=== PATIENT | female | born 1990 | race Two or more races ===

== ENCOUNTER 2018-04-12 02:51 | Emergency (ER) | payer MEDICAID ==
[~2018-04-12] VITALS: Ht 154.9 cm; Wt 101.0 kg
[2018-04-12 03:52] LABS: BASOPHILS % 1.1 % (0.0-2.0); HEMATOCRIT. 42.3 % (36.0-48.0); HEMOGLOBIN. 14.2 g/dL (12.0-16.0); LYMPHOCYTES % 23.5 % (20.0-50.0); MEAN CORPUSCULAR HEMOGLOBIN 31.6 pg (28.0-32.0); MEAN PLATELET VOLUME 10.2 fl (7.4-10.4); MONOCYTES % 6.2 % (2.0-8.0); NEUTROPHILS % 66.2 % (40.0-76.0); PLATELET 213 x1000/uL (130-400); RED CELL DISTRIBUTION WIDTH 13.3 % (11.6-14.6)
[2018-04-12 03:58] LABS: CHLORIDE 108 mEq/L (98-107)
[2018-04-12 04:00] LABS: PARTIAL THROMBOPLASTIN TIME 26.9 sec (23.4-31.0); PROTHROMBIN TIME 10.6 sec (9.4-11.6)
[2018-04-12 04:09] LABS: B-HCG QUANTITATIVE 2 mIU/mL (<3)
[2018-04-12 05:10] VITALS: BP 138/82
[2018-04-12] MEDS ORDERED: IOHEXOL-350 100 ML BOTTLE ONE (05:48)
== END 2018-04-12 06:15 | disposition home or self-care (01) ==
LOC: ER 02:51
DX: R06.02 Shortness of breath (principal); F12.10 Cannabis abuse, uncomplicated; Z98.890 Other specified postprocedural states
CPT/HCPCS: 36415; 71275; 80053; 81025; 84702; 85025; 85610; 85730; 86850; 86900; 86901; 93005; 99285; Q9967

== ENCOUNTER 2018-04-19 00:13 | Emergency (ER) | payer MEDICAID ==
[~2018-04-19] VITALS: Ht 154.9 cm; Wt 98.0 kg
[2018-04-19 02:04] LABS: BASOPHILS % 0.7 % (0.0-2.0); EOSINOPHILS % 2.7 % (0.0-5.0); HEMATOCRIT. 42.8 % (36.0-48.0); HEMOGLOBIN. 14.6 g/dL (12.0-16.0); LYMPHOCYTES % 26.9 % (20.0-50.0); MEAN CORPUSCULAR HEMOGLOBIN 31.8 pg (28.0-32.0); MEAN CORPUSCULAR VOLUME 93.4 fL (81.0-99.0); MEAN PLATELET VOLUME 9.8 fl (7.4-10.4); MONOCYTES % 5.8 % (2.0-8.0); NEUTROPHILS % 63.9 % (40.0-76.0); PLATELET 209 x1000/uL (130-400); RED BLOOD CELL COUNT 4.58 mill/uL (4.2-5.4); RED CELL DISTRIBUTION WIDTH 12.7 % (11.6-14.6)
[2018-04-19 02:08] LABS: CHLORIDE 105 mEq/L (98-107)
[2018-04-19 02:10] LABS: PROTHROMBIN TIME 10.7 sec (9.4-11.6)
[2018-04-19 02:41] VITALS: BP 111/70
== END 2018-04-19 02:44 | disposition home or self-care (01) ==
LOC: ER 00:44
DX: R07.89 Other chest pain (principal); R06.02 Shortness of breath; M79.602 Pain in left arm; Z98.890 Other specified postprocedural states
CPT/HCPCS: 36415; 71045; 80053; 81025; 83880; 84484; 85025; 85610; 93005; 99285; Z7610

== ENCOUNTER 2025-02-25 09:06 | Emergency (ER) | payer MEDICAID ==
[~2025-02-25] VITALS: Ht 154.9 cm; Wt 104.0 kg
[2025-02-25 09:11] VITALS: O2SAT 100
[2025-02-25 09:29] VITALS: TEMP 36.8; O2SAT 100
[2025-02-25] MEDS: CEFTRIAXONE SODIUM 500MG VIAL IM ONE (10:32)
[2025-02-25 11:57] VITALS: BP 153/114; PULSE 72; RESP 15
[2025-02-25] MEDS: IBUPROFEN 600MG TABLET PO ONE (11:57)
[2025-02-25 12:45] LABS: CLARITY URINE CLOUDY (CLEAR); COLOR URINE YELLOW (YELLOW); GLUCOSE URINE NEGATIVE (NEGATIVE); KETONES URINE TRACE (NEGATIVE); LEUKOCYTE ESTERASE URINE 1+ (NEGATIVE); NITRITE URINE NEGATIVE (NEGATIVE); OCCULT BLOOD URINE 3+ (NEGATIVE); PH URINE 5.5 (4.5-8.0); PROTEIN URINE TRACE (NEGATIVE); SPECIFIC GRAVITY URINE 1.029 (1.005-1.030); UROBILINOGEN URINE 0.2 E.U./dL (0.2-1.0)
[2025-02-25] MEDS ORDERED: METR-167 MT (13:13)
[2025-02-25] MEDS ORDERED: DOXY100C5 MT (13:13)
[2025-02-25 13:20] LABS: BACTERIA URINE 2+; RBC URINE TNTC /hpf (0-2); SQUAMOUS EPITHELIAL CELL URINE 3+ /lpf (RARE/1+); YEAST URINE NONE SEEN
[2025-02-28 04:10] LABS: CHLAMYDIA TRACHOMATIS NAA Negative (Negative); NEISSERIA GONORRHOEAE NAA Negative (Negative)
== END 2025-02-25 13:36 | disposition home or self-care (01) ==
LOC: ER 09:06
DX: N76.0 Acute vaginitis (principal); R10.2 Pelvic and perineal pain; Z79.899 Other long term (current) drug therapy; Z98.890 Other specified postprocedural states
CPT/HCPCS: 87491; 87591; 81003; 81025; 87210; 96372; 99284; J0696; Z7610

== ENCOUNTER 2025-10-20 12:00 | Emergency (ER) | payer MEDICAID ==
[~2025-10-20] VITALS: Ht 154.9 cm; Wt 87.0 kg
[~2025-10-20 12:00] MED LIST: DOXY100C5 MT; METR-167 MT
[2025-10-20 12:03] VITALS: BP 119/74; PULSE 87; RESP 18; TEMP 36.7; O2SAT 100
[2025-10-22 06:08] LABS: HSV TYPE 2 SPECIFIC AB IGG Non Reactive (Non Reactive)
== END 2025-10-20 13:46 | disposition home or self-care (01) ==
LOC: ER 12:00
DX: Z11.3 Encounter for screening for infections with a predominantly sexual mode of transmission (principal); Z98.890 Other specified postprocedural states; Z79.899 Other long term (current) drug therapy
CPT/HCPCS: 36415; 81025; 86592; 86695; 86696; 99283